=== PATIENT | female | born 1960 | race Caucasian/White ===

== ENCOUNTER 2019-07-21 16:03 | Observation (INO) ==
--- OUTSIDE RECORDS SUMMARY | 2019-07-21 16:07 | External Medical Summary | Continuity of Care Document ---
:1960 Author Name Larry M.D. Address Unavailable Unavailable , Care Team Providers Name Role Phone Unavailable Unavailable Unavailable PCP, NO Unavailable Unavailable Unavailable Unavailable Unavailable Problems Menometrorrhagia (626.2) (N92.1) Encounter for routine gynecological examination (V72.31) (Z0 1.419) Allergies and Adverse Reactions No Known Drug Allergies (Allergy) Medications No Reported Medications , M.D. Refills: 0 Procedures History of Dilation And Curettage Status : Completed History of Breast Surgery Reduction Procedure Status: Completed History of Tubal Ligation Status: Comple joni Immunizations Immunizations not documented Social History - Smoking Status Current every day smoker Plan of Treatment Planned Observations Planned Goals not documented Results No Known Results Results not documented
[2019-07-21 19:06] LABS: Hematocrit (blood only) 43.7 % (37-47); Hemoglobin 14.6 g/dL (12.0-16.0); Mean Corpuscular Hemoglobin 31.6 pg (25-34); Mean Corpuscular Hgb Conc 33.4 g/dL (32-36); Mean Corpuscular Volume 94.6 fL (80-100); Mean Platelet Volume 11.3 fL (7.4-10.4); Platelet Count 249 K/uL (130-400); RDW Coefficient of Variation 13.4 % (11.5-14.5); RDW Standard Deviation 46.4 fL (36.4-46.3); Red Blood Count 4.62 M/uL (4.2-5.4)
[2019-07-21] MEDS ORDERED: ASPIRIN 81 MG CHEW PO STA (19:13)
[2019-07-21 19:14] LABS: Albumin Level 3.7 gm/dl (3.4-5.0); BUN Creatinine Ratio 22.8 (10-20); Calcium 9.7 mg/dl (8.5-10.1); Creatinine Clr Calc Pharmacy 55.7 ml/min; Est GFR (African American) 76.5; Magnesium 2.4 mg/dl (1.8-2.4); Potassium 4.1 mmol/L (3.5-5.1)
[2019-07-21 19:21] LABS: Partial Thromboplastin Ratio 0.8; Partial Thromboplastin Time 22.8 Seconds (21.0-31.0); Prothrombin Time 10.3 Seconds (9.0-12.0)
[2019-07-21 19:25] LABS: Bilirubin,Total 0.2 mg/dl (0.2-1); Globulin 3.6 gm/dl (2.5-4.0); Thyroid Stimulating Hormone 1.63 uIu/ml (0.300-4.500); Total Protein 7.3 gm/dl (6.4-8.2)
[2019-07-21] MEDS ORDERED: OPTIRAY 320 125ml IV PRN (19:52)
--- NOTE | 2019-07-21 20:01 | XRay Report ---
XR chest 1V portable CLINICAL HISTORY: stroke alert COMPARISON STUDY: No previous studies for comparison. FINDINGS: Lung volumes are normal. Lungs are clear. There is no pneumothorax or pleural effusion. Car diac size is normal. Mediastinal contours are normal. There is no evidence for pulmonary edema. IMPRESSION: No acute cardiopulmonary findings. Electronically signed by: Gabriel Zayas M.D. 07/21/2019 8:00 PM
--- NOTE | 2019-07-21 20:11 | CT Scan Report ---
CT OF THE HEAD WITHOUT CONTRAST CLINICAL HISTORY: slurred speech, headache COMPARISON STUDY: No previous studies for comparison. TECHNIQUE: Helical axial images of the head were obtained without IV contrast. Automated exposure con trol was utilized for the study. A dose lowering technique was utilized adhering to the principles o f ALARA. FINDINGS: No acute intracranial hemorrhage, midline shift or mass effect is present. The ventricular system is unremarkable. The basilar cisterns are patent. No extra-axial collections are present. Ther e are no findings to suggest acute dural sinus thrombosis or acute territorial infarct. No significan t calvarial abnormalities are present. Visualized portions of the sinuses and mastoid air cells are c lear. IMPRESSION: No acute intracranial findings. Electronically signed by: Gabriel Zayas M.D. 07/21/2019 8:09 PM
--- NOTE | 2019-07-21 20:41 | CT Scan Report ---
CT ANGIOGRAPHY OF THE NECK WITH CONTRAST CLINICAL HISTORY: slurred speech, dizzy COMPARISON STUDY: No previous studies for comparison. Technique: CT angiography of the carotid and vertebral arteries was obtained using FreeCharge 320 IV and 3D reconstruction on an independent workstation. NASCET criteria was utilized. Automated exposure c ontrol was utilized for the study. A dose lowering technique was utilized adhering to the principles of ALARA. Findings: Mild emphysema is noted within the lung apices. There is a 4 mm right upper lobe nodule. No cervical lymphadenopathy is present. There is no cervical spine fracture. There is mild atherosclero tic plaque within the major vessels within neck. There is no dissection or significant stenosis withi n these vessels. The bilateral common carotid, cervical internal carotid and vertebral arteries are p atent. IMPRESSION: 1. Mild atherosclerotic plaque. No significant stenosis. No dissection within the major vessels of th e neck. 2. 4 mm right upper lobe pulmonary nodule. A follow-up chest CT in 6 months is recommended to ensure stability. 3. Mild emphysema. Electronically signed by: Gabriel Zayas M.D. 07/21/2019 8:39 PM
--- NOTE | 2019-07-21 20:54 | CT Scan Report ---
CTA ANGIOGRAPHY OF THE HEAD CLINICAL HISTORY: slurred speech, dizzy COMPARISON STUDY: None. TECHNIQUE: Helical axial images of the head were obtained following uneventful intravenous administr ation of 116 cc of Optiray 320. Automated exposure control was utilized for the study. A dose lower ing technique was utilized adhering to the principles of ALARA. CT DOSE: 1010.41 mGy.cm FINDINGS: No acute intracranial hemorrhage, midline shift or mass effect is present. Ventricular syst em is normal. Basilar cisterns are patent. There are no extra-axial collections. There is moderate ca lcified atherosclerotic plaque within the bilateral cavernous carotids with mild stenosis. There is n o severe stenosis within the intracranial vessels. No intraluminal thrombus is noted. There is no dis section. There is mild plaque within the proximal intracranial portion of the right vertebral artery. Posterior circulation is intact. There is no intracranial aneurysm. IMPRESSION: Mild to moderate atherosclerotic plaque within the intracranial vessels. No dissection, significant stenosis or abrupt vessel cut off. Electronically signed by: Gabriel Zayas M.D. 07/21/2019 8:52 PM
--- NOTE | 2019-07-21 21:39 | History & Physical Report ---
Date of Service July 21, 2019 Assessment & Plan (1) TIA (transient ischemic attack): Ms. Terry is a 59-year-old female with no significant past medical history who presented to the emergency department due to a transient episode of slurred speech. ED course: 324 mg p.o. aspirin TIA -Admit to telemetry -Symptoms consistent with a transient ischemic attack. Neurological examination is currently normal. NIHSS of 0 -CT brain without acute intracranial findings -CTA head and neck show mild to moderate atherosclerotic plaque -Noncontrast MRI brain ordered -Echo ordered, as well as fasting lipid panel and hemoglobin A1c to complete TIA work-up -Patient started on 81 mg of aspirin, as well as 40 mg of atorvastatin -Neurology consult ordered Emphysema -CTA neck suggestive of mild emphysema -Patient does endorse a daily cough, and mild shortness of breath on exertion -Consider outpatient PFTs -may benefit from addition of inhaler prior to d/c Incidental pulmonary nodule -CTA neck shows 4 mm right upper lobe pulmonary nodule -Recommend outpatient follow-up chest CT in 6 months CODE STATUS: Full DVT prophylaxis: SCDs Disposition: Admit to telemetry. Pt will need PCP follow up on discharge, and currently does not have a PCP. (2) Emphysema of lung: (3) Incidental pulmonary nodule, > 3mm and < 8mm: History of Present Illness Chief Complaint: Slurred speech Primary Care Provider: NO PCP Ms. Terry is a 59-year-old female with no significant past medical history who presented to the emergency department due to a transient episode of slurred speech. She states that earlier today, she was talking to her son. She noted that she felt off balance, and had a 5 minute episode where she felt like she could not speak. She states she knew what she wanted to say, but the words would not come out of her mouth. She was able to understand others. She states it was like being drunk. She reported that this resolved spontaneously. She denied any focal weakness, or trouble with her vision. She reports a similar episode occurred while she was in the emergency department, approximately 3.5 hours ago. She states that she had a 2-minute episode where her speech was slurred. 2 family members at the bedside confirmed this. She states that she has never had trouble with speech in the past. She has had no prior history of TIA, stroke, or [place]. Of note, with her history of smoking, she reports a daily cough, and occasional shortness of breath with exertion. She does not use inhalers at home. She has never seen a lung doctor. PMHx: No significant PMHx. Pt states she has not seen a doctor in years. PSHx: nil of note Medications: no home medications Allergies: NKDA FHx: Father w/hx of HTN. No family hx of stroke/TIA/LA. SHx: Smoked 1/2 PPD x 30 years. Rare alcohol use. No recreational drug use. Allergies Allergy/AdvReac Type Severity Reaction Status Date / Time No Known Allergies Allergy Unverified 07/21/19 19:46 Home Medications Home Medications Medication Instructions Recorded Confirmed Type aspirin [Ecotrin Low Strength] 81 mg PO QAM #30 tab 07/22/19 Rx atorvastatin 40 mg PO QAM #30 tab 07/22/19 Rx nicotine 1 patch TD DAILY #14 ea 07/22/19 Rx nicotine (polacrilex) 2 mg BUCCAL Q8H PRN #100 ea 07/22/19 Rx Past Med/Surg History Medical History No significant past medical history Surgical History No significant past surgical history Family History Other Family history non-contributory Social History Preferred Language: Frisian Communication Ability: Effective Pet Counselor Required: No Beliefs That Will Affect Care: None marital status: Current Living Situation: Family Feels Safe at Home: Yes Smoking Status: Unknown if ever smoked Hx Alcohol Use: No Hx Substance Use: No Review of Systems Constitutional: no fever, no chills, no fatigue and no anorexia Eyes: no blind spots, no diplopia and no loss of peripheral vision Respiratory: + cough and + dyspnea on exertion; no wheezing Cardiovascular: no chest pain, no palpitations, no lightheadedness, no syncope, no edema and no calf pain Gastrointestinal: no abdominal pain, no nausea, no vomiting, no dysphagia and no change in bowel habits Neurologic: + abnormal speech; no falls, no localized weakness and no loss of sensation Physical Exam Constitutional: WD/WN, vitals as above + well hydrated and average body habitus Eyes: PERRL, conjunctivae normal, anicteric sclerae ENMT: external ear and nose normal, oropharynx normal Respiratory: normal respiratory effort, lungs clear to auscultation Cardiovascular: RRR, no murmur, no edema Gastrointestinal (Abdomen): normal bowel sounds, soft, nontender, no hepatosplenomegaly Musculoskeletal: no cyanosis or clubbing, extremities motor strength 5/5 Skin: no rashes, warm and dry Neurologic: patellar DTR's 2+ bilat, sensation intact and PERRL, EOMI, accommodation nl, no face palsy, no dysarthria CN's II-XI intact bilaterally Psychiatric: A+Ox3, euthymic affect Results & Data Vital Signs (Past 12 Hours) Vital Signs Temp Pulse Pulse Resp BP BP Pulse Ox 07/21/19 21:13 72 20 136/78 96 07/21/19 20:03 77 18 161/97 H 98 07/21/19 19:13 78 20 166/94 H 97 07/21/19 18:50 62 20 99 07/21/19 16:11 36.5 C 89 20 150/95 H 96 Code Status & VTE Plan VTE Prophylaxis Plan VTE Prophylaxis will be ordered: Yes Supervising Physician Co-Signing Physician Notes Attending addendum: I have physically seen this patient, have supervised the medical residents activities, and agree with the H&P unless as otherwise noted. Assessment and Plan: TIA- The patient will be admitted to telemetry for serial cardiac enzymes, serial EKG's, cardiac rhythm monitoring and a 2-D echocardiogram with Dopplers. Ischemic stroke without TPA protocol. CT brain negative. CTA head neck with no acute findings, showing mild to moderate atherosclerosis. MRI brain without contrast ordered and pending. Aspirin 81 mg daily. High-dose atorvastatin 40 mg daily. Remainder of orders and notations as noted. Resident Activity Tracking Resident Involvement: Resident Care Provided Care Provided: Adult Hospital Medicine
[2019-07-21] MEDS ORDERED: ACETAMINOPHEN 325 MG TAB PO PRN (22:19)
[2019-07-21] MEDS ORDERED: PHARMACIST DISCHARGE MED REC CONSULT PRN (22:19)
--- NOTE | 2019-07-22 01:18 | Emergency Department Note ---
Entered by Milagro Reid acting as a scribe for Nathanael Elise M.D. History of Present Illness General Chief complaint: TIA Symptoms Stated complaint: DIZZY, SLURRED SPEECH, SLIGHT HEADACHE Time Seen by Provider: 07/21/19 18:22 Source: patient and family (son) History of Present Illness Onset (ago): hour(s) (around 1600 today) Location: head, upper extremity and lower extremity Pain Consistency: + other (episode (5 minutes)) Maximum Pain Intensity: 2 Quality: + other (TIA symptoms) Associated symptoms: + headaches (slight, feels similar to her normal headaches) and + other (Positive swaying from side to side, slurred speech, recall of the events. Negative facial drooping, changes in vision, numbness, recent falls, LOC. ); no weakness The patient is a 59 year old female who presents to the ED with complaints of TIA symptoms. She states around 1600 today, she was outside talking to her son and his fianc. She is accompanied by her son who reports that when he was talking to the patient, she suddenly began swaying from side to side. He notes she then walked away to sit down without saying anything and if she did not sit, she would have fallen. Her son states she then began speaking with slurred speech. He reports this episode lasted around 5 minutes. Her son denies the patient having any weakness or facial drooping. Currently, the patient reports she has a slight headache but this feels similar to her normal headaches. She states she ate earlier today but she has been under increased stress lately. The patient notes she remembers the entirety of the events and was aware they were happening. She denies any changes in vision, numbness, recent falls, LOC. Pt is a current smoker. Home Medications Home Medications Medication Instructions Recorded Confirmed Type aspirin [Ecotrin Low Strength] 81 mg PO QAM #30 tab 07/22/19 Rx atorvastatin 40 mg PO QAM #30 tab 07/22/19 Rx nicotine 1 patch TD DAILY #14 ea 07/22/19 Rx nicotine (polacrilex) 2 mg BUCCAL Q8H PRN #100 ea 07/22/19 Rx Allergies Allergy/AdvReac Type Severity Reaction Status Date / Time No Known Allergies Allergy Unverified 07/21/19 19:46 Past Med/Surg History Medical History No significant past medical history Surgical History No significant past surgical history Family History Other Family history non-contributory Social History Preferred Language: Syriac Communication Ability: Effective Mental Health Social Worker Required: No Beliefs That Will Affect Care: None marital status: Current Living Situation: Family Feels Safe at Home: Yes Smoking Status: Unknown if ever smoked Hx Alcohol Use: No Hx Substance Use: No Review of Systems See HPI for pertinent positives & negatives. and A total of 10 systems reviewed and were otherwise negative Physical Exam Vital Signs Vital Signs - 24 hr 07/21/19 16:11 07/21/19 18:50 07/21/19 19:13 Temperature 36.5 C Temperature Source Oral Sepsis Recent Fever Within 48 Hours No Sepsis New/Unexplained Change in Mental Status No Sepsis Action Taken by Nursing No Action Required Pulse Rate 89 62 Pulse Rate [Bilateral Apical] 78 Pulse Rhythm Regular Pulse Strength Normal Respiratory Rate 20 20 20 Respiratory Effort / Characteristics Non-Labored Spontaneous Respiratory Depth Normal Respiratory Pattern Regular Blood Pressure 150/95 H Blood Pressure [Left Arm] 166/94 H Blood Pressure Mean 113 Blood Pressure Mean [Left Arm] 118 Blood Pressure Position Sitting Blood Pressure Position [Left Arm] Pulse Oximetry 96 99 97 Oxygen Delivery Method Room Air Room Air Room Air 07/21/19 20:03 07/21/19 21:13 Temperature Temperature Source Sepsis Recent Fever Within 48 Hours Sepsis New/Unexplained Change in Mental Status Sepsis Action Taken by Nursing Pulse Rate Pulse Rate [Bilateral Apical] 77 72 Pulse Rhythm Pulse Strength Respiratory Rate 18 20 Respiratory Effort / Characteristics Respiratory Depth Respiratory Pattern Blood Pressure Blood Pressure [Left Arm] 161/97 H 136/78 Blood Pressure Mean Blood Pressure Mean [Left Arm] 118 97 Blood Pressure Position Blood Pressure Position [Left Arm] Sitting Pulse Oximetry 98 96 Oxygen Delivery Method Room Air GENERAL: Awake, alert, well-appearing, in no distress HENT: Normocephalic, atraumatic. Oropharynx unremarkable. TMs clear bilaterally. EYES: Normal conjunctiva. Sclera non-icteric. NECK: Supple. No nuchal rigidity. RESPIRATORY: Clear to auscultation. No wheezes. Normal respiratory effort. CARDIAC: Normal rate. Normal rhythm. Extremities warm and well perfused. GI: Soft, non-distended. No tenderness to palpation. No rebound or guarding. MUSCULOSKELETAL: Atraumatic. Chest examination reveals no tenderness. LOWER EXTREMITIES: Calves are equal size bilaterally and non-tender. No edema NEURO: Normal sensorium. No sensory or motor deficits noted. No facial droop. No slurred speech. No pronator drift. No finger to nose ataxia. Cranial nerves 2-10 grossly intact. SKIN: Warm and dry. No jaundice noted. Course 1824: Past medical records reviewed. The patient was evaluated in room B4. A complete history and physical exam was performed. 1910: I reevaluated the patient at this time. 2102: I updated her on the treatment plan at this time. 2137: Discussed the patient's case with Dr. Armando, [facility] Hospitalist. The patient will be evaluated for further management. Administered Medications Discontinued Medications Aspirin (Aspirin Chew) 324 mg PO NOW STA Stop: 07/21/19 19:14 Last Admin: 07/21/19 19:20 Dose: 324 mg Documented by: [id number] Aspirin (Ecotrin Ectab) [facility] Stop: 08/21/19 08:59 Last Admin: 07/22/19 08:35 Dose: 81 mg Documented by: [id number] Atorvastatin Calcium (Lipitor) 40 [facility] [place] [facility] Stop: 08/21/19 08:59 Last Admin: 07/22/19 08:35 Dose: 40 mg Documented by: [id number] Ioversol (Optiray 320 125ml) 116 ml IV ONCE PRN PRN Reason: Interaction Checking Stop: 07/25/19 19:51 Last Admin: 07/21/19 19:52 Dose: 116 ml Documented by: [id number] Miscellaneous Information (Discharge, Stroke Patient) 1 ea N/A NOW STA Stop: 07/22/19 13:34 Last Admin: 07/22/19 14:07 Dose: 1 ea Documented by: [id number] Impression & Plan TIA (transient ischemic attack) Discharge Plan Visit Data *Final* Discharge Date/Time: 07/21/19 22:08 Chief Complaint: TIA Symptoms Stated Complaint: DIZZY, SLURRED SPEECH, SLIGHT HEADACHE ED Provider: Nathanael Elise Discharge Problem: TIA (transient ischemic attack) Patient Disposition: Admitted As Inpatient Condition: Good Discharge Instructions Interventions: ED Discharge Assessment Last Done: 07/21/19 22:08 Medical Decision Making Differential Diagnosis Differential diagnosis: Etiologies such as metabolic, infection, hypoglycemia, electrolyte abnormalities, cardiac sources, intracerebral event, toxicologic, neurologic, as well as others were entertained. Medical Records Attestation: I reviewed the patient's medical records. Home Medications Current Medication List: was personally reviewed by me Laboratory Data Attestation: I reviewed the patient's lab results. Result diagrams: 07/21/19 18:46 07/21/19 18:46 Lab Results 07/21/19 07/21/19 07/21/19 Range/Units 18:46 18:46 18:46 WBC 9.30 (4.8-10.8) K/uL RBC 4.62 (4.2-5.4) M/uL Hgb 14.6 (12.0-16.0) g/dL Hct 43.7 (37-47) % MCV 94.6 (80-100) fL MCH 31.6 (25-34) pg MCHC 33.4 (32-36) g/dL RDW Std Deviation 46.4 H (36.4-46.3) fL RDW Coeff of [place] 13.4 (11.5-14.5) % Plt Count 249 (130-400) K/uL MPV 11.3 H (7.4-10.4) fL PT 10.3 (9.0-12.0) Seconds INR 1.0 (0.9-1.1) APTT 22.8 (21.0-31.0) Seconds PTT Ratio 0.8 Sodium 142 (136-145) mmol/L Potassium 4.1 (3.5-5.1) mmol/L Chloride 107 (98-107) mmol/L Carbon Dioxide 28 (21-32) mmol/L Anion Gap 8.0 (3-11) BUN 22 H (7-18) mg/dl Creatinine 0.95 (0.6-1.2) mg/dl Est Cr Clr Drug Dosing 55.7 ml/min Est GFR ( Amer) 76.5 Est GFR (Non-Af Amer) 66.0 BUN/Creatinine Ratio 22.8 H (10-20) Glucose 98 (70-99) mg/dl Calcium 9.7 (8.5-10.1) mg/dl Magnesium 2.4 (1.8-2.4) mg/dl Total Bilirubin 0.2 (0.2-1) mg/dl AST 11 L (15-37) U/L ALT 13 (12-78) U/L Alkaline Phosphatase 92 (45-117) U/L Total Protein 7.3 (6.4-8.2) gm/dl Albumin 3.7 (3.4-5.0) gm/dl Globulin 3.6 (2.5-4.0) gm/dl Albumin/Globulin Ratio 1.0 (0.9-2) TSH 1.630 (0.300-4.500) uIu/ml Imaging Data Radiologist's Impression: Radiology results as stated below per my review and the radiologist's interpretation: XR chest 1V portable CLINICAL HISTORY: stroke alert COMPARISON STUDY: No previous studies for comparison. FINDINGS: Lung volumes are normal. Lungs are clear. There is no pneumothorax or pleural effusion. Cardiac size is normal. Mediastinal contours are normal. There is no evidence for pulmonary edema. IMPRESSION: No acute cardiopulmonary findings. Electronically signed by: Gabriel Zayas M.D. 07/21/2019 8:[address] OF THE HEAD WITHOUT CONTRAST CLINICAL HISTORY: slurred speech, headache COMPARISON STUDY: No previous studies for comparison. TECHNIQUE: Helical axial images of the head were obtained without IV contrast. Automated exposure control was utilized for the study. A dose lowering technique was utilized adhering to the principles of ALARA. FINDINGS: No acute intracranial hemorrhage, midline shift or mass effect is present. The ventricular system is unremarkable. The basilar cisterns are patent. No extra-axial collections are present. There are no findings to suggest acute dural sinus thrombosis or acute territorial infarct. No significant calvarial abnormalities are present. Visualized portions of the sinuses and mastoid air cells are clear. IMPRESSION: No acute intracranial findings. Electronically signed by: Gabriel Zayas M.D. 07/21/2019 8:09 PM CTA ANGIOGRAPHY OF THE HEAD CLINICAL HISTORY: slurred speech, dizzy COMPARISON STUDY: None. TECHNIQUE: Helical axial images of the head were obtained following uneventful intravenous administration of 116 cc of Optiray 320. Automated exposure control was utilized for the study. A dose lowering technique was utilized adhering to the principles of ALARA. CT DOSE: 1010.41 mGy.cm FINDINGS: No acute intracranial hemorrhage, midline shift or mass effect is present. Ventricular system is normal. Basilar cisterns are patent. There are no extra-axial collections. There is moderate calcified atherosclerotic plaque within the bilateral cavernous carotids with mild stenosis. There is no severe stenosis within the intracranial vessels. No intraluminal thrombus is noted. There is no dissection. There is mild plaque within the proximal intracranial portion of the right vertebral artery. Posterior circulation is intact. There is no intracranial aneurysm. IMPRESSION: Mild to moderate atherosclerotic plaque within the intracranial vessels. No dissection, significant stenosis or abrupt vessel cut off. Electronically signed by: Gabriel Zayas M.D. 07/21/2019 8:[address] ANGIOGRAPHY OF THE NECK WITH CONTRAST CLINICAL HISTORY: slurred speech, dizzy COMPARISON STUDY: No previous studies for comparison. Technique: CT angiography of the carotid and vertebral arteries was obtained using OptiraOwned it 320 IV and 3D reconstruction on an independent workstation. NASCET criteria was utilized. Automated exposure control was utilized for the study. A dose lowering technique was utilized adhering to the principles of ALARA. Findings: Mild emphysema is noted within the lung apices. There is a 4 mm right upper lobe nodule. No cervical lymphadenopathy is present. There is no cervical spine fracture. There is mild atherosclerotic plaque within the major vessels within neck. There is no dissection or significant stenosis within these vessels. The bilateral common carotid, cervical internal carotid and vertebral arteries are patent. IMPRESSION: 1. Mild atherosclerotic plaque. No significant stenosis. No dissection within the major vessels of the neck. 2. 4 mm right upper lobe pulmonary nodule. A follow-up chest CT in 6 months is recommended to ensure stability. 3. Mild emphysema. Electronically signed by: Gabriel Zayas M.D. 07/21/2019 8:39 PM ECG Data Attestation: I personally reviewed and interpreted this ECG as follows: Indication: + other (TIA symptoms) Rate (beats per minute): 72 Rhythm: + normal sinus ECG ST segments: no ST depression and no ST elevation ECG Findings: + Other (nonspecific ST changes); no PACs and no PVCs Blood Pressure Blood Pressure Findings: Elevated blood pressure Blood Pressure Disposition: further management by hospitalist GIN Narrative 59-year-old female denies past medical history presenting to the emergency department today stating that when she went out this afternoon she started to feel unbalanced and had slurred speech. Her son reports that she was stumbling and had slurred speech. Symptoms lasted about 5 minutes. Patient states the symptoms have now improved but she does have a slight headache. No trauma or fevers reported. No history of similar. Denies drugs or alcohol. States he felt dizzy during this. Was conscious during the whole time and states she difficulty speaking. States after about 5 minutes or so this resolved. No other tremor or seizure-like activity reported. Patient is not a primary care doctor. Did eat and sleep today although has had some increased stress this week. Patient states she is a little bit of a headache now but that is not all that atypical for her. Did not take anything for this headache. No significant neurological deficits or aphasia/dysarthria noted on exam here. Basic labs were obtained as well as EKG. CT the head and CT angiograms were obtained as well. No obvious mass lesions infarcts, blood, or critical occlusions noted. Patient symptoms are somewhat concerning for possible TIA; while here the patient had another very transient minute or 2 episode of difficulty with speech that again resolved. There is no other reported deficits upon my reevaluation and now she is back at baseline. Discussed options with the patient's. Did recommend further observation here in the hospital and evaluation. Given a full dose of aspirin. The scribe's documentation has been prepared under my direction and personally reviewed by me in its entirety. I confirm that the note above accurately reflects all work, treatment, procedures, and medical decision making performed by me.
[2019-07-22 07:05] LABS: Estimated Average Glucose 120 mg/dl; Hemoglobin A1C 5.8 % (4.5-5.6)
--- NOTE | 2019-07-22 07:28 | Magnetic Resonance Report ---
MR brain wo con HISTORY: 59 years-old Female slurred speech, ?TIA acute strokelike symptoms COMPARISON: CT head, CTA head and neck 07/21/2019 TECHNIQUE: Multiplanar multisequence MRI of the brain was obtained without the use of IV contrast. FINDINGS: Removable Prosthodontist localizer images demonstrate no gross extracranial abnormality. There is no restricted diffusio n to suggest acute or subacute infarction. Midline structures including the corpus callosum, brainste m, optic chiasm, and pituitary gland appear unremarkable on the sagittal T1 series. Tiny pineal gland cysts measure up to 2 mm. No cerebellar tonsillar herniation. Imaged cervical spine appears unremark able. No acute intracranial hemorrhage, midline shift, abnormal extra axial collection, hydrocephalus or in tracranial mass. There are a few punctate foci of increased T2/FLAIR signal noted about the white mat ter and gudelia, likely of no clinical significance. Major flow voids at the level the skull base appear patent. Mastoid air cells are clear. Mild mucosal thickening of the maxillary and ethmoid sinuses. S kull, soft tissues and orbits are unremarkable. IMPRESSION: No acute intracranial abnormality, specifically there is no evidence of acute or subacute infarction. The above report was generated using voice recognition software. It may contain grammatical, syntax o r spelling errors. Electronically signed by: Karl Goff M.D. 07/22/2019 7:27 AM
[2019-07-22 07:35] LABS: Chol HDL Ratio 3; Cholesterol 207 mg/dl (0-200); HDL Cholesterol 68 mg/dl; LDL Cholesterol Calculated 120 mg/dl; Triglycerides 93 mg/dl (0-150); VLDL Cholesterol 19 mg/dl
[2019-07-22] MEDS ORDERED: ATORVASTATIN 40 MG TAB PO SCH (09:00)
[2019-07-22] MEDS ORDERED: ASPIRIN 81 MG ECTAB PO SCH (09:00)
--- NOTE | 2019-07-22 10:20 | Neurology Consultation ---
Date of Consultation July 22, 2019 Assessment & Plan (1) TIA (transient ischemic attack): Probable TIA characterized by sudden onset disequilibrium and dysarthria with a duration of about 5 minutes, but with recurrence of brief dysarthria while in the emergency department. Reported symptoms potentially localized to the brainstem. Patient is currently asymptomatic and has a normal neurological examination. Her brain MRI was negative for acute or subacute stroke although did reveal a mild degree of chronic microvascular ischemic change in the gudelia and cerebral hemispheres. No evidence of significant vascular lesions on CT angiography of the head and neck although she does have mild to moderate diffuse atherosclerotic change. No evidence for cardioembolic source. Patient's blood pressure was a bit elevated at the time of presentation although her BP has normalized. Agree with daily low-dose aspirin and atorvastatin as ordered. Smoking cessation needs to be stressed. Patient will need to establish with a PCP for ongoing monitoring of her cardiovascular status, including her blood pressure. Would consider obtaining a 30-day cardiac event monitor as an outpatient as well. She does not appear to have any need for acute rehab services. No further immediate neurological recommendations. History of Present Illness Reason for Consultation: TIA Requesting Physician: Charles Lambert MD Attending Physician: Neal Flores MD History of Present Illness The patient is a 59-year-old female with a chief complaint of sudden onset difficulty with balance and associated slurred speech that began yesterday at around 4 PM while walking with her son and fianc. She recalls feeling as if she was "drunk." She felt as if she was swaying to the sides although denied true vertigo. She sat down and her symptoms resolved within about 5 minutes. She does not recall experiencing any associated vision disturbance, numbness, or lateralized weakness. There was no associated alteration in alertness or consciousness. She reportedly had another similar episode during her assessment in the emergency department characterized primarily by transient slurred speech and again without associated focal or lateralizing neurological symptoms. The patient had been complaining of a low-grade headache although this symptom has resolved. The patient denies a history of TIA or stroke. She admits that she does not follow with a primary care physician regularly and has a generally unremarkable past medical history. She recalls an episode of syncope that occurred while moving her bowels several years ago although she has not had a recurrence of this issue. She is a smoker. Additional details as below. Allergies Allergy/AdvReac Type Severity Reaction Status Date / Time No Known Allergies Allergy Unverified 07/21/19 19:46 Home Medications Home Medications Medication Instructions Recorded Confirmed Type No Known Home Medications 07/21/19 07/21/19 History Patient History Medical History No significant past medical history Surgical History No significant past surgical history Family History Other Family history non-contributory Social History Preferred Language: Syriac Communication Ability: Effective Conditioning Coach Required: No Beliefs That Will Affect Care: None Current Living Situation: Family Other Information That Helps Us Care for You: No Feels Safe at Home: Yes Safety Concerns: Feels Safe At This Time Smoking Status: Unknown if ever smoked Hx Alcohol Use: No Hx Substance Use: No Review of Systems Constitutional: no fever and no chills Eyes: no blind spots and no diplopia Ear, Nose, Mouth, Throat: + dizziness; no hearing loss Respiratory: no cough and no dyspnea Cardiovascular: no chest pain and no palpitations Gastrointestinal: no nausea and no vomiting Genitourinary: no dysuria and no urinary incontinence Musculoskeletal: no back pain, no neck pain and no myalgia Integumentary: no rash and no lesions Neurologic: as per Subjective / HPI, + gait abnormality, + unsteadiness, + dizziness and + headache(s); no localized weakness, no loss of sensation, no paresthesia, no tremor(s), no seizure-like activity, no abnormal speech, no confusion and no memory loss Psychiatric: no depression and no anxiety Hematologic / Lymphatic: no easy bleeding and no easy bruising Physical Exam Physical Exam: The patient is a well-developed, well-nourished elderly female. She is alert and fully oriented. Recent and remote memory intact. Attention and concentration normal. Patient exhibits a normal spontaneous speech pattern as well as an age-appropriate fund of knowledge. Visual ayoub full to confrontation. Visual acuity normal. Pupils equal round reactive to light and accommodation. Eye movements normal. There is no nystagmus, ptosis, or ophthalmoplegia. Facial sensation intact. There is no facial droop or weakness. Hearing intact. Palate elevates to midline. Shoulder shrug intact. Tongue protrudes to midline. Sensation intact to all modalities in all 4 limbs. Deep tendon reflexes intact and symmetrical for the arms and legs. Plantar responses downgoing bilaterally. There is no dysdiadochokinesia or dysmetria [id number] or [id number] bilaterally. Ophthalmoscopic examination reveals normal-appearing optic disks and posterior segments. No papilledema or hemorrhages. Carotid pulses normal bilaterally, no bruits to auscultation. Gait and station normal. Patient exhibits normal muscle strength and tone for all 4 limbs. No atrophy. No abnormal movements observed. Results & Data Vital Signs (Past 12 Hours) Vital Signs Temp Pulse Pulse Pulse Resp BP Pulse Ox 07/22/19 07:50 36.7 C 69 18 136/82 95 07/22/19 07:46 76 07/22/19 03:52 36.5 C 66 18 143/84 H 94 07/22/19 00:59 36.5 C 66 18 128/83 93 07/22/19 00:13 70 07/21/19 22:15 63 18 168/93 H 99 07/21/19 22:07 83 18 151/91 H 96 Laboratory Results WBC 9.30, hemoglobin 14.6, hematocrit 43.7, platelet count 249, sodium 142, potassium 4.1, BUN 22, creatinine 0.95, glucose 98, hemoglobin A1c 5.8, magnesium 2.4, AST 11, ALT 13, triglycerides 93, cholesterol 207, LDL 120, VLDL 19, HDL [address] of the head completed at the time of presentation was unremarkable. No hemorrhage or evidence of acute process. I reviewed the images as well as the radiologist interpretation of this test. CT angiography of the head and neck revealed mild atherosclerotic plaque, no hemodynamically significant lesion, no aneurysm. MRI of the brain negative for acute or subacute stroke. There is mild chronic microvascular ischemic change within the cerebral hemispheres and gudelia. I reviewed the images as well as the radiologist interpretation of this test. Electrocardiogram reveals a normal sinus rhythm, 72 bpm An echocardiogram was negative for obvious cardioembolic source. No intra- atrial shunt. Slightly reduced left ventricular systolic function noted.
[2019-07-22] MEDS ORDERED: STROKE PATIENT DISCHARGE STA (13:33)
--- NOTE | 2019-07-22 13:33 | Discharge Summary ---
Date of Service July 22, 2019 Admission HPI Per Admitting Provider Ms. Terry is a 59-year-old female with no significant past medical history who presented to the emergency department due to a transient episode of slurred speech. She states that earlier today, she was talking to her son. She noted that she felt off balance, and had a 5 minute episode where she felt like she could not speak. She states she knew what she wanted to say, but the words would not come out of her mouth. She was able to understand others. She states it was like being drunk. She reported that this resolved spontaneously. She denied any focal weakness, or trouble with her vision. She reports a similar episode occurred while she was in the emergency department, approximately 3.5 hours ago. She states that she had a 2-minute episode where her speech was slurred. 2 family members at the bedside confirmed this. She states that she has never had trouble with speech in the past. She has had no prior history of TIA, stroke, or [place]. Of note, with her history of smoking, she reports a daily cough, and occasional shortness of breath with exertion. She does not use inhalers at home. She has never seen a lung doctor. PMHx: No significant PMHx. Pt states she has not seen a doctor in years. PSHx: nil of note Medications: no home medications Allergies: NKDA FHx: Father w/hx of HTN. No family hx of stroke/TIA/[place]. SHx: Smoked 1/2 PPD x 30 years. Rare alcohol use. No recreational drug use. Principal Diagnosis TIA Discharge Exam Constitutional WD/WN, vitals as above average body habitus; no acute distress Eyes PERRL and EOM intact bilaterally (no diplopia) ENMT external ear and nose normal, oropharynx normal Respiratory normal respiratory effort, lungs clear to auscultation Cardiovascular RRR, no murmur, no edema Gastrointestinal (Abdomen) normal bowel sounds, soft, nontender, no hepatosplenomegaly Musculoskeletal no cyanosis or clubbing, extremities motor strength 5/5 Skin no rashes, warm and dry Neurologic PERRL, EOMI, accommodation nl, no face palsy, no dysarthria CN's II-XI intact bilaterally, moves all extremities and awake; no focal motor deficits and not confused Speech / Cognition: normal speech Motor/Sensory: no tremor Psychiatric A+Ox3, euthymic affect Discharge Data Allergies Allergy/AdvReac Type Severity Reaction Status Date / Time No Known Allergies Allergy Unverified 07/21/19 19:46 Consultations 07/21/19 21:00 ED Decision to Admit Stat 07/21/19 22:19 Consult Case Management - Discharge Planning Routine Consult Neurology Routine Ordered Studies 07/21/19 18:34 CT angio head w con Stat CT angio neck with con Stat CT head/brain wo con Stat 07/21/19 22:19 MR brain wo con Routine Hospital Course (1) TIA (transient ischemic attack): Mrs Terry was admitted to [facility] due to sudden onset dysarthria (slurred speech) and disequilibrium. She was diagnosed with TIA. Brain MRI showed no acute intracranial abnormality. Treated with aspirin and atorvastatin. LDL 120. Smoking cessation was stressed to the patient. Recommend having a 30 day event monitor (to be ordered by your primary care provider). Incidentally she was also found to have a lung nodule on CT scan. She qualifies for lung cancer screening given her smoking history and it was recommended she discusses this further with her new PCP. She also has a chronic cough, shortness of breath on exertion and emphysema found incidentally on CT scan. Recommended establishing with a primary care provider to discuss further testing / treatment for this. (2) Emphysema of lung: (3) Incidental pulmonary nodule, > 3mm and < 8mm: Total Time Total Time Spent Total Time Spent (In Minutes): 45 Total Time Includes: Examination of the Patient, Discharge Planning, Medication Reconciliation and Communication With Other Providers Discharge Plan Discharge Items Patient Disposition: Home - Self-Care Reason For Visit: TIA Discharge Diagnosis: Transient ischemic attack (mini stroke) Condition on Discharge: Good Activity: Resume your previous activity Non-emergency contact: Primary Care Provider Call non-emergency contact if: you have any medication questions and your symptoms worsen Follow-up/Referrals: Torres Jacques MD [Primary Care Provider] - 07/23/19 10:45 am (Please, follow up with Dr. Torres Jacques TOMORROW, SundayJuly 23 at 10:45 am. He will be your new primary care provider. *The office is located at [address] [facility] [facility] in [place]. This is the [facility]. If you need to change this appointment, call the office at [phone].) Diet: Heart Healthy Addtl Attending Provider Instructions: You were observed overnight in hospital due to symptoms of sudden onset dysarthria (slurred speech) and disequilibrium. You were diagnosed with transient ischemic attack (TIA, mini stroke). You were treated with aspirin and atorvastatin and should continue these medications indefinitely unless otherwise advised by a physician. Please follow up with your new primary care provider as above. Recommend having a 30 day event monitor (to be ordered by your primary care provider). Incidentally you were found to have a lung nodule on CT scan. You actually qualify for lung cancer screening program and would recommend discussing this further with your PCP. Given chronic cough, shortness of breath on exertion and emphysema found incidentally on CT scan of your neck I would recommend discussing pulmonary function testing with your primary care provider. Pending Studies at Discharge: No Stand-Alone Forms: Medications to Prevent Stroke, My [facility] [employer], Smoking Cessation Medications and DC Order Prescriptions: New atorvastatin 40 mg Tablet 40 mg PO QAM Qty: 30 RF: 0 aspirin [Ecotrin Low Strength] 81 mg Tablet,Delayed Release (Dr/Ec) 81 mg PO QAM Qty: 30 RF: 0 nicotine 7 mg/24 hr patch 24 hour 1 patch TD DAILY Qty: 14 RF: 0 nicotine (polacrilex) 2 mg gum 2 mg BUCCAL Q8H PRN (Reason: nicotine cravings) Qty: 100 RF: 0 Discharge Orders: Discharge Order (Routine); Ordered 07/22/19 Ordered By: Neal Dewitt/Other Patient Handouts: TIA, Attack Transient Ischemic Dc, Atorvastatin Calcium Oral tablet, Aspirin Oral tablet Admission Data Admit Date/Time: 07/21/19 21:31 Attending Provider: Neal Flores Admit Provider: Charles Gray Primary Care Provider: Torres Jacques Other Providers: Rob Armando ; Arian Seo Other Interventions: Discharge Summary Assessment (RN) Last Done: 07/22/19 14:10 DC Date/Time DO NOT enter until pt leaves facility: 07/22/19 15:03
--- NOTE | 2019-07-22 14:29 | Pharmacy Report ---
Pharmacist Stroke Counseling - Date of Service July 22, 2019 - Scope: Pharmacy has been consulted to provide medication discharge counseling for this patient admitted with transient ischemic attack as per the Pharmacist Discharge Counseling for Stroke Patients Protocol. - Medications on Discharge: New Rx's Medication Instructions Recorded aspirin [Ecotrin Low Strength] 81 mg PO QAM #30 tab 07/22/19 atorvastatin 40 mg PO QAM #30 tab 07/22/19 nicotine 1 patch TD DAILY #14 ea 07/22/19 nicotine (polacrilex) 2 mg BUCCAL Q8H PRN #100 ea 07/22/19 - Action: The above medications, specifically ones for stroke treatment/prophylaxis, have been reviewed in detail with the patient and/or patient corporate representative(s) prior to discharge. This includes indication, common adverse reactions, drug interactions, and medication administration. Medication counseling has been employed using the teach-back method to ensure understanding. - Outcome: The patient and/or patient corporate representative(s) have demonstrated understanding of the medications. Please note, they are aware that the pharmacist will call them within 72 hours post-discharge to confirm that the appropriate medications are being taken and answer any further medication related questions the patient might have at that time. Contact information Individual to be contacted: Patient Relationship to patient (if applicable): N/A Phone number: [phone] Best time to call: Please call only Sunday AM (07/25/19) since patient said she has a to go to on . 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 She said her [id number] and this added to the stress that caused the stroke. I reviewed all her meds with her including the Nicotine to help with smoking cessation. She said she is going to try to cut back on her smoking habits. I reviewed medication side effects for the ASA and Atorvastatin and gave her the handout that explains these. Thank you for allowing pharmacy to be involved in the care of this patient. Please call [phone] or [phone] with any additional questions
--- NOTE | 2019-07-24 23:47 | Billing Data ---
Coding Level of Care Code 40294 Initial Inpt Care Lvl 3
--- NOTE | 2019-07-25 09:12 | Coding Query ---
CODING CLARIFICATION TIA was documented within the record as possible/consistent with. For outpatient/observation accounts, only confirmed diagnoses can be coded. Please provide further clarification below for accurate coding assignments: (x) TIA was present during this admission ( ) TIA was ruled out during this admission ( ) It is unsure whether or not a TIA was present during this admission ( ) Other, please clarify: Thank you for your assistance, Zahida Houser - Frit Maker MELONIE
--- NOTE | 2019-07-25 11:54 | Pharmacy Report ---
Pharmacist Post D/C Phone Note - Phone Note: Date of phone call: July 25, 2019. Individual with whom pharmacist spoke to: FREIDA Melissa MARTINEZ The following questions were reviewed during the phone call with responses listed below each: Can you tell me the medications that you are currently taking as well as when and how you take each medication? -See Table Below When have you missed any doses of your medications? - she did miss dose yesterday. She had been running around and is not used to taking any medication. Suggested utilizing a pill box to help to remember however patient denied needing to use that. She states she just has to get into the routine and plans to take them around same time each day so she remembers What side effects are you having from your medications, specifically, the new medications you were started on? - none reported What questions do you have about your medications? - none What problems are you having obtaining your medications? - none When is your next appointment with your primary care doctor? - Already saw PCP the day after her hospital discharge. She notified doctor of current medications at home. She did talk with the doctor about smoking cessation as she has not been using the nicotine patch/gum that was prescribed on discharge. She mentioned she wants to hold off on these things and try to do it herself by cutting down the number of cigarrettes each day gradually. She said that if she decides to start the patch/gum she will notify her doctor. Did discuss the risks associated with smoking, including stroke, and patient aware and knows she needs to stop smoking. Additional comments: - Patient friendly to talk with today. Has a good understanding of the medications she is on. As explained above is not currently using the nicotine patch or the gum as she is trying to quit smoking on her own. Patient mentioned that her PCP that she saw was a new provider for her as she did not have a PCP prior to hospital admission. She states that the provider aware of all her new medications and she is now uptodate on her immunizations and is scheduled for a mamogram soon. No other pertinent positives on interview today. No other concerns As per the Pharmacist Discharge Counseling for Stroke Patients Protocol, this phone call has been completed within 72 hours of discharge. Thank you for allowing us to be involved in the care of this patient. Thank you for allowing us to be involved in the care of this patient. - Home Medications: New Rx's Medication Instructions Recorded aspirin [Ecotrin Low Strength] 81 mg PO QAM #30 tab 07/22/19 atorvastatin 40 mg PO QAM #30 tab 07/22/19 nicotine 1 patch TD DAILY #14 ea 07/22/19 nicotine (polacrilex) 2 mg BUCCAL Q8H PRN #100 ea 07/22/19
== END 2019-07-22 15:03 | disposition home or self-care (01) ==
LOC: 2S 16:03 → ED 16:03 → SUATTDRO 21:31 → 2S 22:08